=== PATIENT | male | born 1940 | race Caucasian/White ===

== ENCOUNTER → 2016-11-21 | Outpatient (CLI) | payer OTHER ==
[~2016-11-21] MED LIST: ASPIRIN325 PO; EZETIMIBE; FISH OIL 1,0001 EAC5 PO; FISH OIL 1,001000 M1 PO; NIASPAN; NIASPAN ER 101000 M1 PO; PRAVACHOL40 MG PO; VITAMIN D1000 UNI1 PO; VITAMIN E400 UNIT PO; ZETIA10 MG PO
== END ==
LOC: ULTRA 13:08
DX: I65.23 Occlusion and stenosis of bilateral carotid arteries (principal); M47.812 Spondylosis without myelopathy or radiculopathy, cervical region; K11.5 Sialolithiasis; E04.2 Nontoxic multinodular goiter; Z77.090 Contact with and (suspected) exposure to asbestos

== ENCOUNTER → 2016-11-22 | Outpatient (CLI) | payer OTHER | LOC: CAT 07:53 | PROVIDERS: Otolaryngology Plastic Surgery within the Head & Neck | DX: E04.2 Nontoxic multinodular goiter (principal) ==

== ENCOUNTER → 2016-11-24 | Outpatient (CLI) | payer OTHER ==
--- NOTE | ~2016-11-24 | S ---
[facility] [place] [address] SURGICAL PATH RPT PROCEDURE Name: MYKEAMIE Nevarez [id number] Admission: 11/24/16 Date of : 44 Discharge: Report #: [id number] Path Case #: [id number] PATHOLOGY REPORT COLLECTION DATE: 11/24/2016 RECEIVED DATE: 11/24/2016 SUBMITTING PHYS: Dr. Junito Hdez OTHER PHYS: Dr. Tsering Orellana SPECIMEN(S) RECEIVED: A.Left thyroid biopsy * * * * * * * * * * * * FINAL DIAGNOSIS: "Left thyroid biopsy", image-guided needle biopsy: - Thyroid tissue with changes consistent with follicular lesion showing a predominantly microfollicular pattern. (See comment) COMMENT: Sections show needle core biopsy fragments of thyroid with changes that are consistent with a follicular lesion. There is predominantly a microfollicular pattern. No classic cytologic features of papillary carcinoma are identified. Of note, this is a small portion of a larger lesion and may not be entirely medical representative. Please see also the fine needle aspirate ([id number]). Clinical and radiographic correlation is recommended. The current case is co-reviewed with Dr. Gillian Hodge. PATHOLOGIST: Marcia Chowdary M.D. REPORT ELECTRONICALLY SIGNED BY: Marcia Chowdary M.D. DATE/TIME: 11/27/2016 23:52 * * * * * * * * * * * * GROSS PATHOLOGY: Received in formalin labeled "Amie Reynaga, left thyroid biopsy," are three distinct needle cores of santamaria soft tissue ranging from 0.5 to 2.0 cm in length, which are submitted entirely in cassette A1. (CAA; 11/26/2016) CLINICAL HISTORY: None provided INITIAL CPT CODE(S): A; 86948 Professional services performed by [facility] at [facility] [address] [place] [address] SURGICAL PATH RPT PROCEDURE Name: AMIE REYNAGA Room #: REG CLI Karen#: [id number] Admission: 11/24/16 Date of : 44 Discharge: Report #: [id number] Path Case #: [id number], [place] [address] Technical services performed by [facility] at [address] [place] [address], [facility] [address] [address]. [facility] [address] [place] [address] PHONE: [phone] DIRECTOR: Andres Arciniega M.D. * * * END OF REPORT * * *
--- NOTE | ~2016-11-24 | CNG ---
[facility] [place] [address] CYTO-NONGYN REPORT PROCEDURE Name: AMIE REYNAGA Room #: REG [facility].#: [id number] Admission: 11/24/16 Date of : 44 Discharge: Report #: [id number] Path Case #: [id number] CYTOPATHOLOGY REPORT COLLECTION DATE: 11/24/2016 RECEIVED DATE: 11/24/2016 SUBMITTING PHYS: Dr. Junito Hdez OTHER PHYS: Dr. Tsering Orellana CLINICAL HISTORY: Multinodular. See also [id number]. SPECIMEN(S) RECEIVED: A.US guided Fine needle aspiration, Left thyroid * * * * * * * * * * * * FINAL DIAGNOSIS: A. Left thyroid US guided Fine needle aspiration: BETHESDA CATEGORY II. 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 COMMENT: Examination shows scattered rare groups of thyroid follicular cells in microfollicles (6 to 7 groups) dispersed in watery and dense colloid. Barely adequate cells are present for examination. Nuclear features of papillary carcinoma are not identified. The concurrent needle core biopsy, [id number] showed a follicular lesion with microfollicular architecture (please refer to a separate report). This discrepancy may be due to sampling. Please note sample represents a minute portion of a larger lesion and it may not be volunteer patient representative. Clinical correlation is suggested. (IUV; 11/27/16) PATHOLOGIST: Gillian Hodge M.D. REPORT ELECTRONICALLY SIGNED BY: Gillian Hodge M.D. DATE/TIME: 11/27/2016 16:50 * * * * * * * * * * * * GROSS PATHOLOGY: A. US guided Fine needle aspiration, Left thyroid: The specimen is labeled "Amie Reynaga" and consists of two fixed slides, two air dried slides. Twenty mL of clear red fluid in fixative from the needle rinse is also submitted and one ThinPrep slide and a cell block were prepared from this material. (clt 11.24.2016) Also received is the RNARetain vial which will be held for molecular studies if needed. [employer] INSPECTOR(S): AGUSTO Jhaveri([facility]) [address] [place] [address] CYTO-NONGYN REPORT PROCEDURE Name: AMIE REYNAGA Room #: REG [facility].#: [id number] Admission: 11/24/16 Date of : 44 Discharge: Report #: [id number] Path Case #: [id number] INITIAL CPT CODE(S): A; 46545, 58987 Professional services performed by [facility] at [address] , [place] [address] [facility] at [address] [place] [address]., [address], [place] [address]. [facility] [address] [place] [address], [address] [place] [address] PHONE: [phone] DIRECTOR: Andres Arciniega M.D. * * * END OF REPORT * * *
== END ==
LOC: ULTRA 09:48
DX: E04.1 Nontoxic single thyroid nodule (principal)

== ENCOUNTER → 2017-12-04 | Outpatient (CLI) | payer OTHER | LOC: ULTRA 07:06 | DX: E04.2 Nontoxic multinodular goiter (principal); J92.9 Pleural plaque without asbestos; J98.4 Other disorders of lung; R59.9 Enlarged lymph nodes, unspecified ==

== ENCOUNTER 2018-10-03 14:02 | Emergency (ER) | payer OTHER ==
[~2018-10-03] VITALS: Ht 177.8 cm; Wt 95.3 kg
[2018-10-03] MEDS ORDERED: MOBIC7.5 MG PO (14:20)
[2018-10-03] MEDS ORDERED: NORFLEX100 MG PO (14:50)
[2018-10-03 15:05] VITALS: BP 153/77
== END 2018-10-03 15:05 | disposition home or self-care (01) ==
LOC: ER 14:02
DX: G24.3 Spasmodic torticollis (principal); E78.00 Pure hypercholesterolemia, unspecified; Z88.0 Allergy status to penicillin

== ENCOUNTER → 2018-11-01 | Outpatient (CLI) | payer OTHER ==
[~2018-11-01] MED LIST changes: +MOBIC7.5 MG PO; +NORFLEX100 MG PO
== END ==
LOC: ULTRA 14:25
DX: E04.2 Nontoxic multinodular goiter (principal)

== ENCOUNTER 2019-03-28 14:04 | Emergency (ER) | payer OTHER ==
[~2019-03-28] VITALS: Ht 177.8 cm; Wt 95.3 kg
[2019-03-28] MEDS ORDERED: LEVOTHYROXINE150 MCG PO (15:21)
[2019-03-28] MEDS ORDERED: ZETIA10 MG PO (15:22)
[2019-03-28 16:35] VITALS: BP 145/78
== END 2019-03-28 16:20 | disposition home or self-care (01) ==
LOC: ER 14:04
DX: S01.81XA Laceration without foreign body of other part of head, initial encounter (principal); E78.00 Pure hypercholesterolemia, unspecified; Z89.021 Acquired absence of right finger(s); Z88.0 Allergy status to penicillin; W01.0XXA Fall on same level from slipping, tripping and stumbling without subsequent striking against object, initial encounter; Y93.89 Activity, other specified; Y92.89 Other specified places as the place of occurrence of the external cause; Y99.8 Other external cause status

== ENCOUNTER 2019-04-01 09:58 | Emergency (ER) | payer OTHER ==
[~2019-04-01] VITALS: Ht 177.8 cm; Wt 95.3 kg
[2019-04-01 09:58] VITALS: BP 159/73
[~2019-04-01 09:58] MED LIST changes: +LEVOTHYROXINE150 MCG PO
== END 2019-04-01 10:40 | disposition home or self-care (01) ==
LOC: ER 09:58
DX: Z48.01 Encounter for change or removal of surgical wound dressing (principal); E78.00 Pure hypercholesterolemia, unspecified; Z85.820 Personal history of malignant melanoma of skin; Z89.021 Acquired absence of right finger(s); Z88.0 Allergy status to penicillin

== ENCOUNTER 2021-08-10 21:14 | Emergency (ER) | payer OTHER ==
[~2021-08-10] VITALS: Ht 170.2 cm; Wt 100.2 kg
[2021-08-10 22:42] VITALS: BP 176/85
== END 2021-08-10 22:45 | disposition home or self-care (01) ==
LOC: ER 21:14
DX: M54.9 Dorsalgia, unspecified (principal); E78.00 Pure hypercholesterolemia, unspecified; Z79.899 Other long term (current) drug therapy; Z88.0 Allergy status to penicillin; W10.8XXA Fall (on) (from) other stairs and steps, initial encounter; Y93.89 Activity, other specified; Y92.89 Other specified places as the place of occurrence of the external cause; Y99.8 Other external cause status